=== PATIENT | female | born 1980 | race Caucasian/White ===

== ENCOUNTER 2017-02-06 15:56 | Emergency (ER) | payer MEDICAID ==
[~2017-02-06] VITALS: Ht 160 cm; Wt 74.0 kg
[~2017-02-06 15:56] MED LIST: LITH300C PO
[2017-02-06 16:54] LABS: HEMATOCRIT 41.3 % (34.6-47.8); HEMOGLOBIN 13.7 g/dL (11.7-16.4); WHITE BLOOD COUNT 8.9 x10^3/uL (3.4-10)
[2017-02-06 17:09] LABS: BLOOD UREA NITROGEN 16 mg/dL (7-18)
[2017-02-06 17:10] VITALS: BP 104/71
== END 2017-02-06 18:22 | disposition home or self-care (01) ==
LOC: ED 17:25
DX: N30.00 Acute cystitis without hematuria (principal); M54.5 Low back pain; Z90.49 Acquired absence of other specified parts of digestive tract
CPT/HCPCS: 36415; 80048; 81001; 82040; 85025; 99284

== ENCOUNTER 2018-06-27 19:06 | Emergency (ER) | payer MEDICAID ==
[~2018-06-27] VITALS: Ht 160 cm; Wt 68.7 kg
[2018-06-27 19:13] VITALS: BP 104/70
[2018-06-27 19:45] LABS: MICROSCOPIC AUTO
[2018-06-27 19:46] LABS: CULTURE INDICATED? YES
[2018-06-27] MEDS ORDERED: KETOROLAC 30 MG/1 ML ONE (19:57)
[2018-06-27] MEDS ORDERED: KETOROLAC 30 MG/1 ML IM ONE (20:00)
== END 2018-06-27 20:17 | disposition home or self-care (01) ==
LOC: ED 19:31
DX: M94.0 Chondrocostal junction syndrome [Tietze] (principal)
CPT/HCPCS: 71046; 81001; 87086; 93005; 96372; 99284; J1885

== ENCOUNTER 2018-08-08 06:03 | Emergency (ER) | payer MEDICAID ==
[~2018-08-08] VITALS: Ht 160 cm; Wt 69.9 kg
[2018-08-08] MEDS ORDERED: SODIUM CHLORIDE FLUSH 10ML SYR IVF ONE (07:00)
[2018-08-08] MEDS ORDERED: ACETAMINOPHEN 325 MG TABLET PO ONE (07:00)
[2018-08-08] MEDS ORDERED: KETOROLAC 30 MG/1 ML IM ONE (07:00)
[2018-08-08] MEDS ORDERED: KETOROLAC 30 MG/1 ML ONE (07:14)
[2018-08-08] MEDS ORDERED: ACETAMINOPHEN 325 MG TABLET ONE (07:14)
[2018-08-08 07:32] LABS: BASOPHILS # (AUTO) 0.02 x10^3/uL (0-0.1); BASOPHILS % (AUTO) 0 % (0-1); EOSINOPHILS % (AUTO) 2 % (1-7); LYMPHOCYTES # (AUTO) 0.36 x10^3/uL (1-3.4); LYMPHOCYTES % (AUTO) 7 % (22-44); MD NO; MEAN CORPUSCULAR HEMOGLOBIN 30.5 pg (27.0-34.8); MEAN CORPUSCULAR HGB CONC 33.7 g/dL (32.4-35.8); MEAN CORPUSCULAR VOLUME 90.7 fL (80-100); MONOCYTES # (AUTO) 0.29 x10^3/uL (0.2-0.8); MONOCYTES % (AUTO) 6 % (2-9); NEUTROPHILS # (AUTO) 4.09 x10^3/uL (1.8-6.8); NEUTROPHILS % (AUTO) 84 % (42-75); PLATELET COUNT 260 x10^3/uL (130-400); RED BLOOD COUNT 5.25 x10^6/uL (3.82-5.3); RED CELL DISTRIBUTION WIDTH 14.6 % (9.6-15.2)
[2018-08-08 07:45] LABS: ALBUMIN 4.1 g/dL (3.4-5.0); ANION GAP 7 mmol/L (5-15); CALCIUM 8.6 mg/dL (8.5-10.1); CHLORIDE 100 mmol/L (98-107); CREATININE 0.96 mg/dL (0.55-1.02)
--- NOTE | 2018-08-08 07:50 | NUR ---
UA TAKEN TO LAB, PT IN BED, NAD, ON CONTINUOUS PULSE OX, CALL LIGHT IN REACH, WCTM
[2018-08-08 08:04] LABS: MICROSCOPIC NOT IND
[2018-08-08 08:08] LABS: CULTURE INDICATED? NO
--- NOTE | 2018-08-08 08:31 | NUR ---
CHEST XRAY & FLU ADDED, AWAITING RESULTS, PT IN BED, NAD, wctm.
[2018-08-08 08:56] LABS: RAPID INFLUENZA A POSITIVE (Negative); RAPID INFLUENZA B Negative (Negative)
[2018-08-08 09:56] VITALS: BP 107/64
== END 2018-08-08 10:00 | disposition home or self-care (01) ==
LOC: ED 07:17
DX: J10.1 Influenza due to other identified influenza virus with other respiratory manifestations (principal)
CPT/HCPCS: 36415; 71046; 80048; 81003; 82040; 83605; 84145; 84703; 85025; 87040; 87400; 96372; 99284; J1885

== ENCOUNTER 2019-01-26 05:45 | Emergency (ER) | payer MEDICAID ==
[~2019-01-26] VITALS: Ht 160 cm; Wt 73.3 kg
[2019-01-26 06:46] VITALS: BP 142/62
== END 2019-01-26 06:49 | disposition home or self-care (01) ==
LOC: ED 06:22
DX: S91.331A Puncture wound without foreign body, right foot, initial encounter (principal); F17.210 Nicotine dependence, cigarettes, uncomplicated; Z90.49 Acquired absence of other specified parts of digestive tract; X58.XXXA Exposure to other specified factors, initial encounter; Y93.89 Activity, other specified; Y92.410 Unspecified street and highway as the place of occurrence of the external cause; Y99.8 Other external cause status
CPT/HCPCS: 90471; 90715